=== PATIENT | female | born 1955 | race Caucasian/White ===

== ENCOUNTER 2024-04-10 13:44 | Emergency (ER) | payer MEDICARE, OTHER ==
[~2024-04-10] VITALS: Ht 160 cm; Wt 72.0 kg
[2024-04-10 14:50] VITALS: BP 143/61; PULSE 84; RESP 16; TEMP 97.1; O2SAT 96
[2024-04-10 15:31] LABS: Basophils # (auto) 0.1 10 ^3/uL (0-0.2); Basophils % (auto) 1.2 % (0.0-2.0); Eosinophils # (auto) 0.2 10 ^3/uL (0-0.8); Eosinophils % (auto) 2.9 % (0.0-7.0); Hematocrit 34.1 % (36.0-46.0); Hemoglobin 11.5 g/dL (12.2-16.2); Lymphocytes # (auto) 2.3 10 ^3/uL (0.4-5.4); Lymphocytes % (auto) 27.7 % (10.0-50.0); Mean Corpuscular Hemoglobin 30.5 pg (28.0-32.0); Mean Corpuscular Hgb Conc. 33.6 g/dL (32.0-36.0); Mean Corpuscular Volume 90.8 fL (80.0-100.0); Monocytes # (auto) 0.9 10 ^3/uL (0-1.3); Monocytes % (auto) 10.4 % (0.0-12.0); Neutrophils # (auto) 4.7 10 ^3/uL (1.6-8.6); Neutrophils % (auto) 57.8 % (37.0-80.0); Red Blood Cells 3.76 10^6/uL (4.0-5.20); Red Cell Distribution Width 14.2 % (11.8-14.3); White Blood Cell 8.2 10^3/uL (4.4-10.8)
[2024-04-10 15:42] LABS: Chloride 105 mmol/L (98-107); Sodium 139 mmol/L (136-145)
[2024-04-10 15:43] LABS: Anion Gap 7 (5-15); Calcium 9.3 mg/dL (8.7-10.4); Carbon Dioxide 27 mmol/L (20-30)
[2024-04-10 15:48] LABS: BUN/Creatinine Ratio 15.5 (10.0-20.0); Blood Urea Nitrogen 11 mg/dL (9-23); Glucose 102 mg/dL (74-106)
[2024-04-10] MEDS: POTASSIUM CHL 20 Meq TABLET PO ONE (16:07)
[2024-04-10] MEDS ORDERED: CEPH500C PO (16:15)
[2024-04-10] MEDS ORDERED: NAPR-746 PO (16:15)
== END 2024-04-10 16:32 | disposition home or self-care (01) ==
LOC: ER 13:57
DX: G89.18 Other acute postprocedural pain (principal); M25.562 Pain in left knee; I10 Essential (primary) hypertension; Z48.00 Encounter for change or removal of nonsurgical wound dressing; Z98.890 Other specified postprocedural states; Z79.899 Other long term (current) drug therapy
CPT/HCPCS: 36415; 73562; 80048; 83605; 85025; 93971

== ENCOUNTER 2024-12-15 13:34 | Emergency (ER) | payer MEDICARE, OTHER ==
[~2024-12-15] VITALS: Ht 160 cm; Wt 57.4 kg
[~2024-12-15 13:34] MED LIST: CEPH500C PO; NAPR-746 PO
[2024-12-15 14:01] VITALS: TEMP 97.9
--- NOTE | 2024-12-15 15:45 | ED.PDOC ---
Musculoskeletal HPI Comments 69 year old female presents to the ED with a chief complaint of bilateral knee pain onset 2 months. PMHx arthritis. Patient states she has been experiencing bilateral knee pain for the past 2 months, usually gets cortisone shot but has not gone because it is down the hill. Denies fall, injury, trauma, chest pain, shortness of breath, headache, dizziness, fever, chills. No other symptoms or modifying factors present at this time. Chief Complaint: Lower Extremity Time Seen by MD: 15:24 Primary Care Provider: Danie Ochoa Notes: Medications, Allergies Allergies: Coded Allergies: NO KNOWN ALLERGIES (Unverified , 04/10/24) Home Meds Active Scripts Naproxen (Naproxen) 500 Mg Tab, 500 MG PO BID, #30 TAB Prov:BLADE ZABALA 04/10/24 Cephalexin Monohydrate (Cephalexin) 500 Mg Cap, 1 CAP PO QID, #32 CAP Prov:BLADE ZABALA 04/10/24 Information Source: Patient Mode of Arrival: Ambulatory Location: Bilateral Extremity Location: Knee Timing: Months Prehospital treatment: None Severity: Moderate Able to Move Extremity: Yes Bear Weight: Fully Pain: Moderate Mechanism: Other (chronic) Circumstances: Arthritis, Other (chronic) Onset of Symptoms: Spontaneous Symptoms: Pain DVT Risk Factors: NONE History of: Arthritis Associated signs and symptoms: Knee pain Past Medical History PAST MEDICAL HISTORY: Arthritis, HTN Surgical History: Denies all surgeries MANAGER INVENTORY MANAGEMENT History: No Pertinent MANAGER INVENTORY MANAGEMENT History Family History Family History: Reviewed,noncontributory to illness Social History Smoker: Non-Smoker Alcohol: Denies ETOH Use Drugs: Denies Drug Use Lives In: Home Constitutional: denies: chills, diaphoresis, fatigue, fever, malaise, sweats, weakness, others EENTM: denies: blurred vision, double vision, ear bleeding, ear discharge, ear drainage, ear pain, ear ringing, eye pain, eye redness, hearing loss, mouth pain, mouth swelling, nasal discharge, nose bleeding, nose congestion, nose pain, photophobia, tearing, throat pain, throat swelling, voice changes, others Respiratory: denies: cough, hemoptysis, orthopnea, SOB at rest, shortness of breath, SOB with excertion, stridor, wheezing, others Cardiovascular: denies: chest pain, dizzy spells, diaphoresis, Dyspnea on exertion, edema, irregular heart beat, left arm pain, lightheadedness, palpitations, PND, syncope, others Gastrointestinal: denies: abdomen distended, abdominal pain, blood streaked bowels, constipated, diarrhea, dysphagia, difficulty swallowing, hematemesis, melena, nausea, poor appetite, poor fluid intake, rectal bleeding, rectal pain, vomiting, others Genitourinary: denies: abnormal vagina bleeding, burning, dyspareunia, dysuria, flank pain, frequency, hematuria, incontinence, pain, , vagina discharge, urgency, others Neurological: denies: dizziness, fainting, headache, left sided numbness, left sided weakness, numbness, paresthesia, pre-existing deficit, right sided numbness, right sided weakness, seizure, speech problems, tingling, tremors, weakness, others Musculoskeletal: reports: others (bilateral knee pain); denies: back pain, gout, joint pain, joint swelling, muscle pain, muscle stiffness, neck pain Integumetry: denies: bruises, change in color, change in hair/nails, dryness, laceration, lesions, lumps, rash, wounds, others Allergic/Immunocompromised: denies: Difficulty Healing, Frequent Infections, Hives, Itching, others Hematologic/Lymphatic: denies: anemia, blood clots, easy bleeding, easy bruising, swollen glands, others Endocrine: denies: excessive hunger, excessive sweating, excessive thirst, excessive urination, flushing, intolerance to cold, intolerance to heat, unexplained weight gain, unexplained weight loss, others Psychiatric: denies: anxiety, bipolar disorder, depression, hopeless, panic disorder, schizophrenia, sleepless, suicidal, others All Other Systems: Reviewed and Negative Physical Exam General Appearance: No Apparent Distress, Normal HEENT: Normal ENT Inspection, Pharynx Normal, TMs Normal Neck: Full Range of Motion, Non-Tender, Normal, Normal Inspection Respiratory: Chest Non-Tender, Lungs Clear, No Accessory Muscle Use, No Respiratory Distress, Normal Breath Sounds Cardiovascular: No Edema, No JVD, No Murmur, No Gallop, Normal Peripheral Pulses, Regular Rate/Rhythm Breast Exam: Deferred Gastrointestinal: No Organomegaly, Non Tender, No Pulsatile Mass, Normal Bowel Sounds, Soft Genitalia: Deferred Pelvic: Deferred Rectal: Deferred Extremities: No calf tenderness, Normal capillary refill, Normal inspection, Normal range of motion, Non-tender, No pedal edema Musculoskeletal : Apperance: Normal Neurologic: Alert, client support manager II-XII nml as Tested, No Motor Deficits, Normal Affect, Normal Mood, No Sensory Deficits Cerebellar Function: Normal Reflexes: Normal Skin: Dry, Normal Color, Warm Lymphatic: No Adenopathy Was a procedure done? Was a procedure done?: No Differential Diagnosis EXT Differential Diagnosis: Sprain X-Ray, Labs, Meds, VS Vital Signs Date Time Temp Pulse Resp B/P (MAP) Pulse Ox O2 Delivery O2 Flow Rate FiO2 12/15/24 14:01 97.9 120 18 160/81 (107) 97 97.9 Time of 1ST Reevaluation: 15:55 Reevaluation 1ST: Unchanged Patient Education/Counseling: Diagnosis, Treatment, Prognosis Family Education/Counseling: No Family Present Departure 1 Departure Time of Disposition: 16:13 (Patient's current bilateral knee pain. We will discharge patient home with orthopedic follow up) Impression: Primary Impression: Bilateral knee pain Qualified Codes: M25.561 - Pain in right knee; M25.562 - Pain in left knee; G89.29 - Other chronic pain Disposition: 01 HOME / SELF CARE / HOMELESS Condition: Stable Referrals: CALLIE SAUCEDO MD Additional Instructions: Please call Dr. Saucedo for appointment this week with either him or his Physician Track Vehicle Repairer. Discharged With: Self Critical Care Note Critical Care Time?: No Stability Stability form required: No I personally scribed for LEISA DIXON MD ([email or web address]) on 12/15/24 at 15:45. Electronically submitted by Genevieve Kothari ([email or web address]). LEISA DIXON MD Dec 15, 2024 15:45
[2024-12-15] MEDS: HYDROcodone-ACET 5/325MG TAB PO ONE (17:56)
[2024-12-15 17:57] VITALS: BP 156/73; PULSE 83; RESP 16; O2SAT 97
== END 2024-12-15 18:03 | disposition home or self-care (01) ==
LOC: ER 13:34
DX: G89.29 Other chronic pain (principal); M25.561 Pain in right knee; M25.562 Pain in left knee; I10 Essential (primary) hypertension; M19.90 Unspecified osteoarthritis, unspecified site